=== PATIENT | female | born 1950 | race Caucasian/White ===

== ENCOUNTER 2020-08-21 09:11 | Day surgery (SDC) | payer MEDICARE, BC ==
[~2020-08-21] VITALS: Ht 162.6 cm; Wt 124.6 kg
[~2020-08-21 09:11] MED LIST: ASPIRIN 81M81 MG/TA2 PO; COZAAR 50MG50 MG/TAB PO; GLUCOSAMINE & C1 CA2 PO; LASIX 40MG TABL40 MG PO; LEVEMIR100 U/ML SQ; LUTEIN20 M1 PO; MITIGARE0.6 MG PO; NEURONTIN800 MG/TAB PO; NORVASC 5MG5 MG/TAB PO; NOVOLOG 100U100 U/M1 SQ; ONE-A-DAY ESSE1 EACH PO; OZEMPIC1 MG/0.75 SQ; PRILOSEC 20MG20 MG PO; PROBIOTIC ACID1 EAC3 PO; SYNTHROID0.075 MG/T PO; TURMERIC500 MG PO; WELLBUTRIN XL150 MG PO; ZYLOPRIM 300MG300 MG PO
[2020-08-21] MEDS ORDERED: ZYLOPRIM 300MG300 MG PO (09:49)
[2020-08-21] MEDS ORDERED: CARAFATE 1GM1 G PO (09:50)
[2020-08-21] MEDS ORDERED: COLCRYS0.6 MG PO (09:52)
[2020-08-21] MEDS ORDERED: NEURONTIN400 MG/CAP PO (09:52)
[2020-08-21] MEDS ORDERED: LASIX 40MG TABL40 MG PO (09:52)
[2020-08-21] MEDS ORDERED: LEVEMIR FLEX100 U/ML SQ (09:53)
[2020-08-21] MEDS ORDERED: COZAAR100 MG PO (09:54)
[2020-08-21] MEDS ORDERED: MULTI-VITAMIN W1 TA1 PO (09:54)
[2020-08-21] MEDS ORDERED: PRILOSEC 20MG20 MG PO (09:55)
[2020-08-21 09:58] VITALS: BP 158/92; PULSE 89; TEMP 98.1
[2020-08-21 11:30] VITALS: BP 150/78; PULSE 86
--- NOTE | 2020-08-21 11:30 | NUR ---
Patient arrives back to [facility] alert, denies pain. Patient ambulated from cart to chair with standby assist and without any complications. Patient monitor applied, vitals stable. Patient given coffee and muffin.
[2020-08-21 11:45] VITALS: BP 135/60; PULSE 88
--- NOTE | 2020-08-21 11:50 | NUR ---
Patient tolerated food and drink without any nausea or vomiting. Vitals stable.
[2020-08-21 12:00] VITALS: BP 137/59; PULSE 69
--- NOTE | 2020-08-21 12:30 | NUR ---
Dismissal instructions gone over with patient. Patient voices understanding and all questions answered.
--- NOTE | 2020-08-21 12:35 | NUR ---
Patient discharged to private vehicle at patient enterance via wheelchair without any complications. Patient leaves thanking staff for services.
== END 2020-08-21 12:35 | disposition home or self-care (01) ==
LOC: SDCO 09:11
DX: K92.1 Melena (principal); K21.9 Gastro-esophageal reflux disease without esophagitis; D12.5 Benign neoplasm of sigmoid colon; K57.30 Diverticulosis of large intestine without perforation or abscess without bleeding; K64.1 Second degree hemorrhoids; R19.7 Diarrhea, unspecified; N18.9 Chronic kidney disease, unspecified; E11.9 Type 2 diabetes mellitus without complications; M10.9 Gout, unspecified; I12.9 Hypertensive chronic kidney disease with stage 1 through stage 4 chronic kidney disease, or unspecified chronic kidney disease; E03.9 Hypothyroidism, unspecified; G47.33 Obstructive sleep apnea (adult) (pediatric); M81.0 Age-related osteoporosis without current pathological fracture; F32.9 Major depressive disorder, single episode, unspecified; Z90.49 Acquired absence of other specified parts of digestive tract; Z79.82 Long term (current) use of aspirin; Z79.899 Other long term (current) drug therapy; Z79.890 Hormone replacement therapy; Z90.89 Acquired absence of other organs; Z87.11 Personal history of peptic ulcer disease
CPT/HCPCS: J0330; J2704; J7030

== ENCOUNTER → 2021-04-26 | Outpatient (CLI) | payer MEDICARE, BC ==
[~2021-04-26] MED LIST changes: +CARAFATE 1GM1 G PO; +COLCRYS0.6 MG PO; +COZAAR100 MG PO; +LEVEMIR FLEX100 U/ML SQ; +MULTI-VITAMIN W1 TA1 PO; +NEURONTIN400 MG/CAP PO
== END ==
LOC: MC.RAD 13:16
DX: Z12.31 Encounter for screening mammogram for malignant neoplasm of breast (principal)

== ENCOUNTER 2023-12-01 11:55 | Outpatient (CLI) | payer MEDICARE, BC ==
[~2023-12-01] VITALS: Ht 162.6 cm; Wt 136.1 kg
[2023-12-01 12:53] VITALS: BP 145/81; PULSE 61; TEMP 97.5
[2023-12-01] MEDS ORDERED: ceFAZolin 2 G in Water For Injection,Sterile 20 ML IV SCH (13:15)
[2023-12-01 13:19] LABS: BASO % 0.1 % (0.0-2.0); EOS # 0.2 K/mm3 (0.0-0.7); EOS % 2.6 % (0.0-4.0); GRAN # 5.3 K/mm3 (1.4-6.5); GRAN % 72.3 % (42.2-75.2); LYMPH # 1.1 K/mm3 (1.2-3.4); MEAN CELL VOLUME 91 fl (80.0-100.0); MEAN CORPUSCULAR HEMOGLOBIN 29 pg (27-31); MEAN CORPUSCULAR HGB CONC 32 g/dl (33.0-37.0); MEAN PLATELET VOLUME 10.5 fl (7.4-10.4); MONO # 0.7 K/mm3 (0.1-0.6); MONO % 9.6 % (1.7-9.3); PLATELET COUNT 184 K/mm3 (130-400); REDCELL DISTRIBUTION WIDTH-CV 14.2 % (11.5-14.5)
[2023-12-01 13:27] LABS: HEMATOCRIT 31.7 % (37.0-47.0)
[2023-12-01] MEDS ORDERED: NOVOLOG FLEX100 U/ML (13:28)
[2023-12-01] MEDS ORDERED: LANTUS100 U/ML SQ (13:29)
[2023-12-01] MEDS ORDERED: MOUNJARO2.5 MG/0.5 SQ (13:30)
[2023-12-01] MEDS ORDERED: TYLENOL 325MG325 MG PO (13:30)
[2023-12-01] MEDS ORDERED: BIOTIN10000 MC1 PO (13:32)
[2023-12-01] MEDS ORDERED: NORVASC 10MG10 MG PO (13:32)
[2023-12-01] MEDS ORDERED: FOLIC ACID 11 MG/TA1 PO (13:33)
[2023-12-01] MEDS ORDERED: COREG 25MG25 MG/TAB PO (13:33)
[2023-12-01 13:36] LABS: ALBUMIN 3.4 g/dL (3.4-4.8); BILIRUBIN,TOTAL 0.4 mg/dL (0.2-1.2); CALCIUM 8.7 mg/dL (8.4-10.2); CREATININE, serum 2.17 mg/dL (0.57-1.11); POTASSIUM 4.5 mEq/L (3.5-4.5); TOTAL PROTEIN 6.3 g/dl (6.2-8.1)
[2023-12-01] MEDS ORDERED: MAG-OX 400400 MG/TAB PO (13:36)
[2023-12-01] MEDS ORDERED: WELLBUTRIN SR150 M1 PO (13:36)
[2023-12-01] MEDS ORDERED: PROBIOTIC-10 370 MG PO (13:38)
[2023-12-01] MEDS ORDERED: CRESTOR5 MG PO (13:39)
[2023-12-01] MEDS ORDERED: NATURE'S BLEND100 M2 PO (13:41)
[2023-12-01] MEDS ORDERED: Lidocaine 2% w EPI (1:100,000) 20 ML Multi-Dose VIAL IJ SCH (14:19)
[2023-12-01] MEDS ORDERED: Midazolam 2 MG/2 ML VIAL IV SCH (14:20)
[2023-12-01] MEDS ORDERED: Heparin 1,000 UNITS/ML 10 ML Multi-Dose VIAL IV SCH ×2 (14:21→14:23)
[2023-12-01] MEDS ORDERED: fentaNYL 50 MCG/ML 2 ML VIAL IV SCH (14:21)
[2023-12-01 14:47] VITALS: BP 144/72; PULSE 62
--- NOTE | 2023-12-01 14:54 | NUR ---
Shanna is tranferred back to express unit rm 11 after TDC insertion with Dr. Melvin. She is awake and alert, pwd with reg and unlabored respirations. There is small area of blood that has come through gauze dressing. This is demarcated by Stef MILTON and express unit RNs will continue to monitor. Shanna is hooked up for post procedure vitals, and of note she is satting 85-89% on room air. She reportedly was satting 87-91% on room air upon arrival earlier today. NASIM. BS report and handoff of care to Susana MILTON.
[2023-12-01 15:00] VITALS: BP 150/65; PULSE 64
[2023-12-01 15:30] VITALS: BP 145/60; PULSE 61
[2023-12-01 15:45] VITALS: BP 142/64; PULSE 61
--- NOTE | 2023-12-01 16:04 | NUR ---
Pt brought to [facility] by wheelchair, accompanied by [id number]. Pt was scheduled for a Tunnel dialysis cath placement. Meds and HX reviewed with the pt. IV started, labs drawn. Consent for the procedure signed. Post procedure the pt came back to [facility] to recover. Right chest site assessed, a small amount of drainage present. Offered the pt something eat and drink, the pt accepted a coffee and a muffin. Pt was bedrest for about 1 hr. At the end of the recovery the dressing was assessed again, the drainage that was present remained the same. Discharge education and information discussed with the pt. No questions at this time. Pt exited the unit by wheelchair accompanied by the nurse to their [id number] car.
[2023-12-02 14:44] LABS: HEPATITIS B SURFACE ANTIBODY <2.0 (()); HEPATITIS B SURFACE ANTIGEN Negative (Negative); HEPATITIS C VIRUS ANTIBODY Negative (Nonreactiv)
== END 2023-12-01 16:06 | disposition home or self-care (01) ==
LOC: COL.CAR 11:55
PROVIDERS: Internal Medicine Nephrology
DX: N19 Unspecified kidney failure (principal)
CPT/HCPCS: J0688; J1644; J2250; J3010

== ENCOUNTER 2023-12-19 10:40 | Outpatient (CLI) | payer MEDICARE ==
[2023-12-19] VITALS (8 sets, daily range): BP systolic 113–161; BP diastolic 61–76; PULSE 59–73; TEMP 97.7
[~2023-12-19] VITALS: Ht 162.7 cm; Wt 129.4 kg
[~2023-12-19 10:40] MED LIST changes: +BIOTIN10000 MC1 PO; +COREG 25MG25 MG/TAB PO; +CRESTOR5 MG PO; +FOLIC ACID 11 MG/TA1 PO; +LANTUS100 U/ML SQ; +MAG-OX 400400 MG/TAB PO; +MOUNJARO2.5 MG/0.5 SQ; +NATURE'S BLEND100 M2 PO; +NORVASC 10MG10 MG PO; +NOVOLOG FLEX100 U/ML; +PROBIOTIC-10 370 MG PO; +TYLENOL 325MG325 MG PO; +WELLBUTRIN SR150 M1 PO
[2023-12-19] MEDS ORDERED: COLACE 100100 MG/CAP PO (11:46)
[2023-12-19] MEDS ORDERED: MOUNJARO2.5 MG/0.5 SQ (11:49)
[2023-12-19] MEDS ORDERED: ceFAZolin 2 G in Water For Injection,Sterile 20 ML IV SCH (13:15)
--- NOTE | 2023-12-19 14:26 | NUR ---
See Merge report for procedural sedation/notes
[2023-12-19] MEDS ORDERED: fentaNYL 50 MCG/ML 2 ML VIAL IV SCH (14:40)
[2023-12-19] MEDS ORDERED: Heparin 1,000 UNITS/ML 10 ML Multi-Dose VIAL IV SCH (14:40)
[2023-12-19] MEDS ORDERED: Midazolam 2 MG/2 ML VIAL IV SCH (14:41)
--- NOTE | 2023-12-19 16:10 | NUR ---
DC instructions reviewed with pt, she expresses understanding. Pt ate muffin and drank coffee and water during recovery period. She has been free of complaints. Dressing remains clean, dry and intact. She is assisted from bed to wheelchair, steady during transfer, then assisted to restroom. IV was DC'd, wrapped with coban. She is assisted to family's car by wheelchair with belongings.
== END 2023-12-19 16:10 | disposition home or self-care (01) ==
LOC: COL.CAR 10:40
DX: T82.49XA Other complication of vascular dialysis catheter, initial encounter (principal); Z86.16 Personal history of COVID-19; Z93.0 Tracheostomy status
CPT/HCPCS: J0688; J1644; J2250; J3010